=== PATIENT | male | born 1960 ===

== ENCOUNTER 2018-11-02 00:14 | Day surgery (SDC) | payer OTHER ==
[2018-11-01 09:47] VITALS: BP 116/79
[~2018-11-02] VITALS: Ht 180.3 cm; Wt 91.6 kg
[~2018-11-02 00:14] MED LIST: ROSU5TAB8 PO
[2018-11-02] MEDS ORDERED: LIDOCAINE/SOD BICARB 8.4% SYR ID ONE (07:55)
[2018-11-02] MEDS ORDERED: NORMOSOL R SOLN(*) 1000 ML BAG 1,000 ML IV PRN (07:55)
[2018-11-02 08:00] VITALS: BP 140/91
[2018-11-02 10:17] VITALS: BP 131/88
[2018-11-02 10:18] VITALS: BP 125/91
== END 2018-11-02 10:30 | disposition home or self-care (01) ==
LOC: OR 00:14
PROVIDERS: ATTEND Family Medicine
DX: Z12.11 Encounter for screening for malignant neoplasm of colon (principal)